=== PATIENT | male | born 1970 | race Caucasian/White ===

== ENCOUNTER 2024-10-05 09:14 | Outpatient (CLI) | payer BC, SELFPAY | END 2024-10-05 09:15 | disposition home or self-care (01) | PROVIDERS: PCP Physician Assistant; Visit Provider Physician Assistant | DX: M25.562 Pain in left knee (principal); L03.116 Cellulitis of left lower limb | CPT/HCPCS: 84550; 85025 ==

== ENCOUNTER 2024-10-06 16:46 | Emergency (ER) | payer BC, SELFPAY | END 2024-10-06 17:02 | disposition left against medical advice (07) | PROVIDERS: PCP Physician Assistant | DX: Z53.21 Procedure and treatment not carried out due to patient leaving prior to being seen by health care provider (principal) ==